=== PATIENT | male | born 1995 | race American Indian/Alaskan Native ===

== ENCOUNTER → 2020-10-27 | Emergency (ER) | payer OTHER ==
[~2020-10-27] VITALS: Ht 177.8 cm; Wt 151.5 kg
== END | disposition home or self-care (01) ==
LOC: ER 13:41
DX: R07.89 Other chest pain (principal); Z11.52 Encounter for screening for COVID-19

== ENCOUNTER 2021-01-02 14:12 | Emergency (ER) | payer OTHER ==
[~2021-01-02] VITALS: Ht 180.3 cm; Wt 145.1 kg
== END 2021-01-02 22:49 | disposition home or self-care (01) ==
LOC: ER 14:12
DX: R53.81 Other malaise (principal); R50.9 Fever, unspecified; R10.84 Generalized abdominal pain

== ENCOUNTER 2022-01-31 11:44 | Outpatient (CLI) | payer OTHER | END 2022-01-31 11:45 | disposition home or self-care (01) | LOC: RAD 11:44 | PROVIDERS: ATTEND General Practice | DX: G44.89 Other headache syndrome (principal); J03.90 Acute tonsillitis, unspecified; J34.3 Hypertrophy of nasal turbinates ==